=== PATIENT | female | born 1940 | race Caucasian/White ===

== ENCOUNTER 2016-12-17 08:18 | Day surgery (SDC) ==
[2016-12-17] MEDS ORDERED: LIDOCAINE HCL 2% LUER-JET ONE (11:10)
[2016-12-17] MEDS ORDERED: DIPRIVAN 20 ML VIAL IVP ONE (11:10)
[2016-12-17] MEDS ORDERED: VERSED ONE (11:10)
[2016-12-17 13:54] VITALS: BP 136/68; TEMP 98
--- NOTE | 2016-12-18 15:31 | OP ---
INDICATIONS FOR PROCEDURE: 76 year old female presents for endoscopy. She is having intermittent dysphagia with solid foods. She has a history of esophageal stricture. She also has a little bit of a hoarse voice. MEDICATIONS: SEE ANESTHESIA NOTES. PROCEDURE: ENDOSCOPY. ESOPHAGEAL BIOPSY. TOGOLESE DILATATION. REPORT: The risks, benefits, alternatives and limitations were discussed in detail with the patient. Informed consent was obtained. After adequate sedation was achieved, the video endoscope was introduced in the posterior pharynx and esophagus under direct vision and easily advanced down to the second portion of the duodenum. I then slowly withdrew. The duodenal mucosa appeared unremarkable as did the duodenal bulb. The antrum body is relatively unremarkable. The scope was retroflexed to look at the cardia and fundus which revealed a hiatal hernia. The scope was anteflexed and withdrawn back through the esophagus there is about a 4cm sliding hiatal hernia. The GE junction was slightly irregular, biopsies were obtained for histological review. There is esophageal stricture causing mild to moderate lumineering. The esophagus was a little bit torturous. The esophageal mucosa was otherwise unremarkable. I advised the scope back down the gastric lumen and placed the guidewire withdrew the scope. Over the guidewire I easily advance the 54 Chinese Indian Dilatator. The patient tolerated the procedure well with stable vital signs and pulse oximetry throughout. IMPRESSION: 1. 4cm hiatal hernia 2. Distal esophageal stricture, dilated as above RECOMMENDATIONS: 1. Strict reflux precautions and advised her strictly to avoiding eating and drinking 3 hours prior to laying down. 2. Await biopsy results to confirm benign nature. 3. Cut and chew food well and eating slowly in an upright position 4. I did advised her to take her Nexium before supper and breakfast instead of before breakfast and at bedtime. 5. Will see her back in the office as needed CC: Dr. Christopher GALLARDO
== END 2016-12-17 12:50 | disposition home or self-care (01) ==
LOC: SURG 08:18
PROVIDERS: ATTEND Internal Medicine Gastroenterology
DX: R13.10 Dysphagia, unspecified (principal); D13.1 Benign neoplasm of stomach; K22.2 Esophageal obstruction; K44.9 Diaphragmatic hernia without obstruction or gangrene; R49.0 Dysphonia; Z87.19 Personal history of other diseases of the digestive system

== ENCOUNTER 2017-12-30 10:18 | Day surgery (SDC) ==
[2017-12-30 11:07] VITALS: TEMP 97.5
[2017-12-30] MEDS ORDERED: SUBLIMAZE ONE (11:21)
[2017-12-30] MEDS ORDERED: VERSED ONE (11:21)
[2017-12-30] MEDS ORDERED: DIPRIVAN 20 ML VIAL IVP ONE (11:21)
--- NOTE | 2017-12-31 10:36 | OP ---
INDICATIONS FOR PROCEDURE: 77 year old female presents complains of intermittent dysphagia. She also has a tickle on the back of her throat, she has a remote history of Bowden's esophagus. MEDICATIONS: SEE ANESTHESIA NOTES. PROCEDURE: ENDOSCOPY, ESOPHAGEAL BIOPSY, MEXICAN DILATATION REPORT: The risks, benefits, alternatives and limitations were discussed in detail with the patient. Informed consent was obtained. After adequate sedation was achieved, the video endoscope was introduced in the posterior pharynx and esophagus under direct vision and easily advanced down to the second portion of the duodenum. I then slowly withdrew. The duodenal mucosa appeared unremarkable as did the duodenal bulb. The antrum body is relatively unremarkable. The scope was retroflexed to look at the cardia and fundus which revealed a hiatal hernia. The scope was anteflexed and withdrawn back through the esophagus. The diaphragmatic hiatus was at 40cm the gastric folds and mucosa extended up to 36cm consistent with the 4cm hiatal hernia. The GE junction was located at the top of the gastric folds but it was slightly irregular. I biopsied the GE junction with a targeted biopsies in four quadrants for histological review. The esophagus was slight torturous but otherwise unremarkable. I advanced the scope back down the gastric lumen and placed the guidewire. Over the guidewire I easily advanced the 54 Thai Vietnamese dilator. The patient tolerated the procedure well with stable vital signs and pulse oximetry throughout. IMPRESSION: 1. 4cm hiatal hernia 2. Successful passive dilation of the esophagus 3. Irregular GE junction with history of Bowden's. RECOMMENDATIONS: 1. Strict reflux precautions 2. Advised her to make sure she takes her time to cut and chew her food well and eat slowly 3. Await esophageal biopsy results if there is no evidence for dysplasia or atypia recommend repeat endoscopy examination again in 3 years. 4. We will see her back in the office as needed. CC: DR. Baldo GALLARDO
[2018-01-01 12:32] VITALS: BP 127/78
== END 2017-12-30 13:00 | disposition home or self-care (01) ==
LOC: SURG 10:18
PROVIDERS: ATTEND Internal Medicine Gastroenterology
DX: R13.10 Dysphagia, unspecified (principal); K44.9 Diaphragmatic hernia without obstruction or gangrene